=== PATIENT | male | born 1960 | race African-American/Black ===

== ENCOUNTER 2020-04-14 16:22 | Inpatient (IN) | payer SELFPAY ==
--- NOTE | 2020-04-14 17:35 | Emergency Department Report ---
HPI - General Chief Complaint: Weakness Time Seen by Provider: 04/14/20 16:58 - HPI HPI: Room 24 The patient is a 59-year-old male present with a chief complaint of "I could not walk." The patient states he came to the emergency department because he is unable to get out of bed. Patient states he does not know why and is unable to describe how he is feeling. Patient does not speak Macedonian and history is obtained via language line for Kyr[place]. Patient states he fell yesterday on the floor and could not stand up. The patient states today he was unable to get out of the bed prompting him to come to the emergency department. Patient denies pain of any type, fever, shortness of breath or nausea/vomiting/diarrhea. Patient denies dysuria. Patient states his right leg feels weaker than his left leg and this all began yesterday. ED Past Medical Hx - Past Medical History Previous Medical History?: No - Surgical History Past Surgical History?: No - Family History Family history: no significant - Social History Smoking Status: Never Smoker Substance Use Type: None ED Review of Systems ROS: Stated complaint: WEAKNESS Other details as noted in HPI Constitutional: denies: fever Eyes: denies: eye pain ENT: denies: throat pain Respiratory: denies: shortness of breath Cardiovascular: denies: chest pain Endocrine: no symptoms reported Gastrointestinal: denies: abdominal pain, nausea, vomiting, diarrhea Genitourinary: denies: dysuria Musculoskeletal: denies: back pain Neurological: denies: headache, paresthesias Physical Exam - Physical Exam Vital Signs: Vital Signs 04/14/20 04/14/20 16:55 17:00 Pulse Rate 109 H 107 H Respiratory 27 H 23 Rate Blood Pressure 203/107 Blood Pressure 203/107 [Right] O2 Sat by Pulse 98 99 Oximetry Physical Exam: GENERAL: The patient is well-developed well-nourished male lying on stretcher not appearing to be in acute distress. [] HEENT: Normocephalic. Atraumatic. Extraocular motions are intact. Patient has moist mucous membranes. NECK: Supple. Trachea midline CHEST/LUNGS: Clear to auscultation. There is no respiratory distress noted. HEART/CARDIOVASCULAR: Regular. There is no tachycardia. There is no gallop rub or murmur. ABDOMEN: Abdomen is soft, nontender. Patient has normal bowel sounds. There is no abdominal distention. SKIN: There is no rash. There is no edema. There is no diaphoresis. NEURO: The patient is awake, alert, and oriented. The patient is cooperative. The patient moves all extremities well. Normal sensation to light touch bilateral lower extremity. The patient has normal speech MUSCULOSKELETAL: There is no evidence of acute injury. ED Course Vital Signs 04/14/20 04/14/20 16:55 17:00 Pulse Rate 109 H 107 H Respiratory 27 H 23 Rate Blood Pressure 203/107 Blood Pressure 203/107 [Right] O2 Sat by Pulse 98 99 Oximetry ED Medical Decision Making - Lab Data Result diagrams: 04/14/20 17:59 04/14/20 17:59 Laboratory Tests 04/14/20 04/14/20 04/14/20 17:59 17:59 17:59 WBC 8.7 RBC 5.21 H Hgb 15.8 H Hct 47.8 H MCV 92 MCH 30 MCHC 33 RDW 14.2 Plt Count 207 Lymph % (Auto) 10.9 L Newton % (Auto) 6.1 Eos % (Auto) 0.0 Baso % (Auto) 0.4 Lymph # (Auto) 0.9 L Newton # (Auto) 0.5 Eos # (Auto) 0.0 Baso # (Auto) 0.0 Seg Neutrophils % 82.6 H Seg Neutrophils # 7.2 PT 13.0 INR 0.99 APTT 26.9 Sodium 137 Potassium 3.8 Chloride 103.0 Carbon Dioxide 25 Anion Gap 13 BUN 13 Creatinine 0.8 Estimated GFR > 60 BUN/Creatinine Ratio 16 Glucose 116 H Calcium 9.3 Total Bilirubin 0.80 AST 24 ALT 25 Alkaline Phosphatase 94 Total Creatine Kinase 309 H CK-MB (CK-2) 4.7 H CK-MB (CK-2) Rel Index 1.5 Troponin T < 0.010 Total Protein 7.5 Albumin 4.1 Albumin/Globulin Ratio 1.2 TSH Free T4 Urine Color Urine Turbidity Urine pH Ur Specific Bath Urine Protein Urine Glucose (UA) Urine Ketones Urine Blood Urine Nitrite Urine Bilirubin Urine Urobilinogen Ur Leukocyte Esterase Urine WBC (Auto) Urine RBC (Auto) 04/14/20 04/14/20 17:59 Unknown WBC RBC Hgb Hct MCV MCH MCHC RDW Plt Count Lymph % (Auto) Newton % (Auto) Eos % (Auto) Baso % (Auto) Lymph # (Auto) Newton # (Auto) Eos # (Auto) Baso # (Auto) Seg Neutrophils % Seg Neutrophils # PT INR APTT Sodium Potassium Chloride Carbon Dioxide Anion Gap BUN Creatinine Estimated GFR BUN/Creatinine Ratio Glucose Calcium Total Bilirubin AST ALT Alkaline Phosphatase Total Creatine Kinase CK-MB (CK-2) CK-MB (CK-2) Rel Index Troponin T Total Protein Albumin Albumin/Globulin Ratio TSH 0.841 Free T4 1.29 Urine Color Straw Urine Turbidity Clear Urine pH 7.0 Ur Specific Bath 1.008 Urine Protein <15 mg/dl Urine Glucose (UA) Neg Urine Ketones Tr Urine Blood Sm Urine Nitrite Neg Urine Bilirubin Neg Urine Urobilinogen < 2.0 Ur Leukocyte Esterase Neg Urine WBC (Auto) 2.0 Urine RBC (Auto) 2.0 - EKG Data -: EKG Interpreted by Fl EKG shows normal: sinus rhythm Rate: tachycardia (101 bpm) - EKG Data When compared to previous EKG there are: previous EKG unavailable Interpretation: other (No ischemic changes seen) - Radiology Data Radiology results: report reviewed (CT head), image reviewed (CT head) [address] [address] Cat Scan Report Signed Patient: YANICK DORMAN MR#: [id number] : 1960 Acct:[id number] Age/Sex: 59 / M ADM Date: 04/14/20 Loc: ED Attending Dr: Ordering Physician: FROY FRANKS MD Date of Service: 04/14/20 Procedure(s): CT head/brain wo con Accession Number(s): [id number] cc: FROY FRANKS MD NONENHANCED CT SCAN OF THE HEAD: INDICATION / CLINICAL INFORMATION: 59 years Male; Fall. TECHNIQUE: Routine CT head without contrast. All CT scans at this location are performed using CT dose reduction for ALARA by means of automated exposure control. COMPARISON: None. FINDINGS: BRAIN / INTRACRANIAL CONTENTS: No intracranial sequela from the trauma; no scalp hematoma; no air-fluid level in the visualized portions of the paranasal sinuses No acute hemorrhage, mass effect, midline shift, hydrocephalus, or acute, large territorial infarct. Chronic lesions in the left thalamus and right globus pallidus; low attenuation focal white matter lesions; these are probably due to chronic small vessel disease; tortuous vertebral basilar system CRANIOCERVICAL JUNCTION: No significant abnormality. ORBITS: No significant abnormality of visualized orbits. SINUSES / MASTOIDS: No significant abnormality of the visualized paranasal sinuses or mastoid air cells. ADDITIONAL FINDINGS: None. IMPRESSION: No Intracranial sequela from the trauma; Chronic lesions in the basal ganglia Signer Name: Maxi Gonzalez MD Signed: 04/14/2020 7:32 PM Workstation Name: [id number] Transcribed By: BS Dictated By: Maxi Goodman MD Electronically Authenticated By: Maxi Goodman MD Signed Date/Time: 04/14/201931 DD/ 28 TD/TT: - Differential Diagnosis Dehydration, hypertensive urgency, UTI, hyponatremia, ICH Critical care attestation.: If time is entered above; I have spent that time in minutes in the direct care of this critically ill patient, excluding procedure time. ED Disposition Clinical Impression: Weakness, Inability to walk Disposition: -09 OP ADMIT IP TO THIS HOSP Is pt being admited?: Yes Does the pt Need Aspirin: Yes Condition: Fair Time of Disposition: 19:43 (Hospitalist paged (Dr. Momin))
[2020-04-14] MEDS ORDERED: cloNIDine 0.2 MG TAB PO ONE (17:50)
[2020-04-14] MEDS ORDERED: SODIUM CHLORIDE 0.9% 1000 ML 1,000 ML IV ONE (17:50)
[2020-04-14 18:24] LABS: Basophils % (Auto) 0.4 % (0.0-1.8); Hematocrit 47.8 % (35.5-45.6); Hemoglobin 15.8 gm/dl (11.8-15.2); Lymphocytes # (Auto) 0.9 K/mm3 (1.2-5.4); Lymphocytes % (Auto) 10.9 % (13.4-35.0); Mean Corpuscular HGB Conc 33 % (32-34); Mean Corpuscular Volume 92 fl (84-94); Monocytes # (Auto) 0.5 K/mm3 (0.0-0.8); Monocytes % (Auto) 6.1 % (0.0-7.3); Platelet Count 207 K/mm3 (140-440); Red Blood Count 5.21 M/mm3 (3.65-5.03); Red Cell Distribution Width 14.2 % (13.2-15.2)
[2020-04-14 18:34] LABS: INR 0.99 (0.87-1.13); Partial Thromboplastin Time 26.9 Sec. (24.2-36.6)
[2020-04-14 18:47] LABS: Creatine Kinase MB 4.7 ng/mL (0.0-4.0)
[2020-04-14 18:49] LABS: Alanine Aminotransferase 25 units/L (7-56); Albumin 4.1 g/dL (3.9-5); BUN/Creatinine Ratio 16; Blood Urea Nitrogen 13 mg/dL (9-20); Calcium 9.3 mg/dL (8.4-10.2); Hemolysis Index 56
[2020-04-14 18:57] LABS: Free T4 (Free Thyroxine) 1.29 ng/dL (0.76-1.46)
[2020-04-14 19:01] LABS: Bilirubin,Urine NEG (Negative); Blood,Urine SM (Negative); Color,Urine Straw (Yellow); Protein,Urine <15 mg/dL mg/dL (Negative); Urobilinogen,Urine < 2.0 mg/dL (<2.0)
--- NOTE | 2020-04-14 19:36 | Cat Scan Report ---
NONENHANCED CT SCAN OF THE HEAD: INDICATION / CLINICAL INFORMATION: 59 years Male; Fall. TECHNIQUE: Routine CT head without contrast. All CT scans at this location are performed using CT dos e reduction for ALARA by means of automated exposure control. COMPARISON: None. FINDINGS: BRAIN / INTRACRANIAL CONTENTS: No intracranial sequela from the trauma; no scalp hematoma; no air-flu id level in the visualized portions of the paranasal sinuses No acute hemorrhage, mass effect, midline shift, hydrocephalus, or acute, large territorial infarct. Chronic lesions in the left thalamus and right globus pallidus; low attenuation focal white matter l esions; these are probably due to chronic small vessel disease; tortuous vertebral basilar system CRANIOCERVICAL JUNCTION: No significant abnormality. ORBITS: No significant abnormality of visualized orbits. SINUSES / MASTOIDS: No significant abnormality of the visualized paranasal sinuses or mastoid air carlo ls. ADDITIONAL FINDINGS: None. IMPRESSION: No Intracranial sequela from the trauma; Chronic lesions in the basal ganglia Signer Name: Maxi Gonzalez MD Signed: 04/14/2020 7:32 PM Workstation Name: [id number]
[2020-04-14 21:29] VITALS: BP 154/93
--- NOTE | 2020-04-14 21:36 | Event Note ---
Date: 04/14/20 Patient feels weak Able to move all 4 extremities No neuro deficits Patient needs home physical therapy Discharge diagnosis severe debility
== END 2020-04-14 21:40 | disposition home or self-care (01) | DRG 948 ==
LOC: ED 16:22 → 3A 19:45
PROVIDERS: ADMIT Internal Medicine; ATTEND Internal Medicine
DX: R53.81 Other malaise (principal)
CPT/HCPCS: 36415; 70450; 80053; 81001; 82550; 82553; 84439; 84443; 84484; 85025; 85610; 85730; 90471; 93005; 96365; 96375; G0378; J7030